=== PATIENT | female | born 1995 | race Caucasian/White ===

== ENCOUNTER 2022-09-11 21:18 | Emergency (ER) | payer BC ==
[~2022-09-11] VITALS: Ht 149.9 cm; Wt 52.0 kg
[2022-09-11 21:21] VITALS: BP 125/80
== END 2022-09-12 03:18 | disposition left against medical advice (07) ==
LOC: ER 21:33
DX: Z53.21 Procedure and treatment not carried out due to patient leaving prior to being seen by health care provider (principal)
CPT/HCPCS: 81025